=== PATIENT | female | born 1950 | race Caucasian/White ===

== ENCOUNTER 2017-12-06 06:00 | Day surgery (SDC) | payer MEDICARE ==
[2017-12-06] MEDS ORDERED: Ketamine HCl 50 MG/ML IJ ONE (06:01)
[2017-12-06] MEDS ORDERED: DIPRIVAN 200 MG/20 ML IV ONE (06:01)
[2017-12-06] MEDS ORDERED: Lactated Ringers 1,000 ML IV SCH (06:30)
[2017-12-06 08:39] VITALS: O2SAT 97
[2017-12-06 08:45] VITALS: BP 146/86; PULSE 71
--- NOTE | 2017-12-06 11:04 | OP ---
SURGERY DATE/TIME: 12/06/2017 0749 PREOPERATIVE DIAGNOSIS: History of colon polyps, surveillance exam. POSTOPERATIVE DIAGNOSIS: Ascending colon polyp. PROCEDURE: Colonoscopy with polypectomy. SURGEON: Dr. Agudelo. ANESTHESIA: MAC. Medications given by anesthesia department. HISTORY: The patient is a 67 year-old white female presenting now for surveillance examination. She previously had colon polyps removed years ago. The patient now represents. She was appraised of the risks of the procedure including the risk of perforation, phlebitis, untoward reaction to medication, bleeding and missed lesions. The patient verbalized her understanding and desired to have the procedure performed. DESCRIPTION OF PROCEDURE: The patient was given the medications by the anesthesia department. She had continuous pulse oximetry, ECG monitoring, intermittent blood pressure monitoring and tidal CO2 monitoring during the examination. She was placed in the left lateral decubitus position. A digital rectal examination was performed and revealed normal anal sphincter tone and no masses. The flexible Olympus pediatric colonoscope was used to intubate the rectum. A view of the colon was developed sequentially to the cecum including a short distance into the terminal ileum. Upon insertion and withdrawal, including a retroflex view in the rectum was noted a 1 cm polyp in the ascending colon and this was biopsied first and then removed using polypectomy snare using hot snare technique to remove the lesion. The polyp was retrieved for pathologic evaluation. Upon insertion and withdrawal including retroflex view in the rectum, no other mucosal lesions being encountered the scope was removed from the patient who tolerated the procedure well and sent to OP recovery in good condition. The prep was noted to be fair to good.
== END 2017-12-06 09:01 | disposition home or self-care (01) ==
LOC: SDC 06:00
PROVIDERS: ATTEND Family Medicine
DX: K63.5 Polyp of colon (principal); Z86.010 Personal history of colon polyps; E11.9 Type 2 diabetes mellitus without complications; Z79.4 Long term (current) use of insulin; E78.5 Hyperlipidemia, unspecified; I10 Essential (primary) hypertension; Z79.899 Other long term (current) drug therapy
CPT/HCPCS: 82962; 88305; 94250; J2704

== ENCOUNTER 2018-07-26 05:31 | Emergency (ER) | payer MEDICARE ==
[2018-07-26 05:54] VITALS: PULSE 68
[2018-07-26] MEDS ORDERED: TORAdol 30 mg Injection IM ONE (06:05)
[2018-07-26] MEDS ORDERED: TORAdol 30 mg Injection ONE (06:10)
--- NOTE | 2018-07-26 06:13 | ERPHSYRPT ---
- History of Present Illness Source: patient Patient Subjective Stated Complaint: pt stood cooking all day, pt c/o of pain in back from top of neck to her heels, states lt leg is numb from hip to knee. Triage Nursing Assessment: lungs clear, heart tones regular. Abd soft with positive bowel sounds. Pt restless due to back pain and states "left leg is numb from hip to foot". Timing/Duration: yesterday Quality: sharp, throbbing Back Pain Location: lumbar spine Severity of Pain-Max: moderate Severity of Pain-Current: moderate Modifying Factors: Improves With: movement Associated Symptoms: tingling in legs/feet, muscle spasms Hx Tetanus, Diphtheria Vaccination/Date Given: Yes Hx Influenza Vaccination/Date Given: No Hx Pneumococcal Vaccination/Date Given: No Immunizations Up to Date: Yes <THOR ELIZABETH - Last Filed: 07/26/18 06:52> <LUDA DAUGHERTY - Last Filed: 07/26/18 08:10> - History of Present Illness Time Seen by Provider: 07/26/18 05:50 Physician History: PATIENT WITH A HISTORY OF DEPRESSION AND HYPERTENSION COMPLAINS OF ACUTE OF SEVERE LOW BACK PAIN SINCE 4PM, ASSOCIATED WITH PAIN RADIATING DOWN THE BACK OF BOTH LEGS, LEFT GREATER THAN RIGHT. STATES SHE TOOK A LEFT OVER ULTRAM FROM PREVIOUS KNEE SURGERY. DENIES TRAUMA, INJURY HEAVY LIFTING, LOSS OF BOWEL OR BLADDER FUNCTION AND WEAKNESS IN EXTREMITIES. (THOR ELIZABETH) Allergies/Adverse Reactions: codeine Allergy (Verified 12/06/17 06:24) Home Medications: Aspirin EC 81 mg [Ecotrin 81 mg] 81 mg PO DAILY 11/29/17 [History] Lisinopril 5 mg [Zestril 5 MG] 5 mg PO DAILY 11/29/17 [History] Metoprolol Avelar/Hydrochlorothiaz [Metoprolol ER-Hctz 25-12.5 mg] 1 each PO DAILY 11/29/17 [History] Simvastatin 40 mg [Zocor 40 mg] 40 mg PO DAILY 11/29/17 [History] Trazodone HCl 50 mg [Desyrel 50 mg] 50 mg PO HS PRN PRN 11/29/17 [History] Venlafaxine HCl 37.5 mg [Effexor 37.5 mg] 37.5 mg PO DAILY 11/29/17 [ History] - Review of Systems Constitutional: No Fever, No Chills Eyes: No Symptoms Ears, Nose, & Throat: No Symptoms Respiratory: No Symptoms Cardiac: No Chest Pain, No Edema, No Syncope Abdominal/Gastrointestinal: No Abdominal Pain, No Nausea, No Vomiting, No Diarrhea Genitourinary Symptoms: No Symptoms Musculoskeletal: Back Pain Skin: No Rash Neurological: Parasthesia Psychological: No Symptoms Endocrine: Excessive Sweating Hematologic/Lymphatic: Easy Bruising All Other Systems: Reviewed and Negative <GLENNTHOR - Last Filed: 07/26/18 06:52> - Past Medical History Pertinent Past Medical History: Yes Neurological History: Migraines ENT History: No Pertinent History Cardiac History: High Cholesterol, Hypertension Respiratory History: No Pertinent History Endocrine Medical History: Diabetes Type II Musculoskeletal History: Fractures GI Medical History: No Pertinent History History: No Pertinent History Psycho-Social History: Depression Female Reproductive Disorders: No Pertinent History Other Medical History: rt kneecap - Past Surgical History Past Surgical History: Yes Neuro Surgical History: No Pertinent History Cardiac: No Pertinent History Respiratory: No Pertinent History Gastrointestinal: No Pertinent History Genitourinary: No Pertinent History Musculoskeletal: Other Female Surgical History: Dilation & Curettage Other Surgical History: rt knee cap reconstruction - Social History Smoking Status: Former smoker Exposure to second hand smoke: No Drug Use: none Patient Lives Alone: No - Female History Hx Now: No <GLENNTHOR Hernandez Last Filed: 07/26/18 06:52> - Physical Exam General Appearance: mild distress, other (APPEARS MARKEDLY ANXIOUS) Eye Exam: PERRL/EOMI Ears, Nose, Throat Exam: moist mucous membranes Neck Exam: normal inspection, non-tender, supple Respiratory Exam: normal breath sounds Cardiovascular Exam: regular rate/rhythm, normal heart sounds Gastrointestinal Exam: soft, normal bowel sounds (NONTENDER, NO PALPABLE MASSES) Back Exam: normal inspection, vertebral tenderness, decreased range of motion ( LUMBAR TENDERNESS L-1 TO L-5, RIGHT PARALUMBAR TENDERNESS, NO CVA TENDERNESS, NO SACROILIAC TENDERNESS, STRAIGHT LEG RAISING + LLE AT 75 DEGREES,) Extremity Exam: normal inspection, normal range of motion Peripheral Pulses: carotid (R): 2+, carotid (L): 2+, femoral (R): 2+, femoral (L ): 2+, dorsalis-pedis (R): 2+, dorsalis-pedis (L): 2+ Neurologic Exam: alert, oriented x 3 Skin Exam: normal color, warm SpO2 Interpretation: normal SpO2: 97 <THOR ELIZABETH - Last Filed: 07/26/18 06:52> - Nursing Vital Signs Nursing Vital Signs: Initial Vital Signs Temperature 98.2 F 07/26/18 05:35 Pulse Rate 68 07/26/18 05:35 Respiratory Rate 28 H 07/26/18 05:35 Blood Pressure 161/82 07/26/18 05:35 O2 Sat by Pulse Oximetry 97 07/26/18 05:35 Pain Scale Pain Intensity [Posterior Back 10 ] Pain Intensity [Left 10 Generalized] Pain Intensity 1 - Course Nursing assessment & vital signs reviewed: Yes <LUDA DAUGHERTY - Last Filed: 07/26/18 08:10> Ordered Tests: Active Orders 24 hr Category Date Time Status LUMBAR SPINE W/O [CT] Stat Exams 07/26/18 06:06 Taken CULTURE,URINE Stat Lab 07/26/18 07:32 Received UA W/RFX UR CULTURE Stat Lab 07/26/18 07:32 Completed Medication Summary Discontinued Medications Generic Name Dose Route Start Last Admin Trade Name Cruzq PRN Reason Stop Dose Admin Ketorolac Tromethamine 30 mg 07/26/18 06:05 07/26/18 06:11 Toradol 30 Mg Injection IM 07/26/18 06:06 30 mg STAT ONE Administration Ketorolac Tromethamine Confirm 07/26/18 06:10 Toradol 30 Mg Injection Administered 07/26/18 06:11 Dose 30 mg .ROUTE .STK-MED ONE Lab/Rad Data: Laboratory Results 07/26/18 Range/Units 07:32 Urine Color YELLOW (YELLOW) Urine Appearance CLEAR (CLEAR) Urine pH 6.0 (5-6) Ur Specific [place] 1.017 (1.005-1.025) Urine Protein NEGATIVE (Negative) Urine Ketones NEGATIVE (NEGATIVE) Urine Blood NEGATIVE (0-5) [place] Urine Nitrite NEGATIVE (NEGATIVE) Urine Bilirubin NEGATIVE (NEGATIVE) Urine Urobilinogen NEGATIVE (0-1) mg/dL Ur Leukocyte Esterase MODERATE (NEGATIVE) Urine WBC (Auto) 26-50 (0-5) /HPF Urine RBC (Auto) 3-5 (0-2) /HPF U Epithel Cells (Auto) RARE (FEW) /HPF Urine Bacteria (Auto) RARE (NEGATIVE) /HPF Urine Mucus (Auto) SLIGHT (NEGATIVE) /HPF Urine Culture Reflexed YES (NO) Urine Glucose NEGATIVE (NEGATIVE) mg/dL <THOR ELIZABEHT - Last Filed: 07/26/18 06:52> - Progress Counseled pt/family regarding: lab results, diagnosis, need for follow-up <LUDA DAUGHERTY - Last Filed: 07/26/18 08:10> - Progress Progress Note: 07/26/18 06:59 ADMINISTERED TORADOL 30MG IM PATIENT CARE ENDORSED TO DR DAUGHERTY AT 0700 FOR DISPOSITION. (THOR ELIZABETH) 07/26/18 07:24 CT SCAN Lumbar spine-mild disc protrusion L4-L5 (LUDA DAUGHERTY) <THOR ELIZABETH - Last Filed: 07/26/18 06:52> - Departure Departure Disposition: Home Critical Care Time: No <LUDA DAUGHERTY - Last Filed: 07/26/18 08:10> - Departure Clinical Impression: Protruded lumbar disc, Back pain, Sciatica, UTI (urinary tract infection) Condition: Stable Referrals: ROSA TORRES [Primary Care Provider] - Additional Instructions: follow up with primary doctor for further management Prescriptions: Carisoprodol 350 mg [Soma 350 mg] 350 mg PO Q8H PRN PRN #10 tablet PRN Reason: Muscle Spasms Ciprofloxacin [Cipro 500 MG] 500 mg PO BID #14 tablet Methylprednisolone Packet [Medrol Dosepack] 4 mg PO UD #1 packet
[2018-07-26 07:57] VITALS: BP 126/61; O2SAT 99
[2018-07-26 08:03] LABS: Appearance CLEAR (CLEAR); Bacteria RARE /HPF (NEGATIVE); Bilirubin NEGATIVE (NEGATIVE); Blood NEGATIVE Ery/ul (0-5); Epithelial Cells RARE /HPF (FEW); Glucose NEGATIVE (NEGATIVE); Ketones NEGATIVE (NEGATIVE); Leukocyte Esterase MODERATE (NEGATIVE); Mucus SLIGHT /HPF (NEGATIVE); Nitrite NEGATIVE (NEGATIVE); Protein,Urine Dip NEGATIVE (Negative); Specific Gravity 1.017 (1.005-1.025); Urobilinogen NEGATIVE mg/dL (0-1); WBC 26-50 /HPF (0-5)
--- NOTE | 2018-07-26 09:00 | XRAY ---
Indication: Low back pain. No known injury. Multiple contiguous axial images obtained through the lumbar spine. Sagittal and coronal reformatted images obtained. Comparison: None There are 5 lumbar vertebral segments. Axial images at the T12-L3 levels negative for large disc herniation or spinal canal stenosis. At the L3-L5 levels, there is moderate annular disc osteophyte complex slightly effacing the thecal sac and producing bilateral foraminal narrowing right greater than left. Opposing endplates also demonstrates degenerative subcortical cysts. Mild bilateral L4-L5 degenerative facet arthropathy. At the L5-S1 level, there is degenerative vacuum disc phenomena along with bilateral foraminal narrowing due to endplate spurring and mild bilateral degenerative facet arthropathy. No large disc herniation or spinal canal stenosis. Sagittal and coronal reformatted images demonstrates normal lumbar alignment. L3-S1 disc space narrowing. No acute compression fracture or subluxation. Visualized noncontrasted soft tissues demonstrates scattered aortoiliac calcifications. Impression: 1. Negative acute fracture/subluxation. 2. L3-S1 degenerative disc disease. Outpatient MRI may yield further information. Comment: Preliminary interpretation was made by [facility]. No critical discrepancy. CT DI 144.59
== END 2018-07-26 08:26 | disposition home or self-care (01) ==
LOC: ED 05:31
DX: M51.9 Unspecified thoracic, thoracolumbar and lumbosacral intervertebral disc disorder (principal); M54.5 Low back pain; M54.30 Sciatica, unspecified side; N39.0 Urinary tract infection, site not specified; E11.9 Type 2 diabetes mellitus without complications; I10 Essential (primary) hypertension; E78.00 Pure hypercholesterolemia, unspecified; F32.9 Major depressive disorder, single episode, unspecified; Z79.899 Other long term (current) drug therapy
CPT/HCPCS: 72131; 81001; 87086; 96372; 99283; J1885